=== PATIENT | female | born 1995 | race Caucasian/White ===

== ENCOUNTER 2016-08-18 08:42 | Emergency (ER) | payer BC, OTHER ==
[2016-08-18 08:49] VITALS: BP 148/98
[2016-08-18 10:19] LABS: ABSOLUTE LYMPHOCYTES (AUTO) 1.3 10^3/uL (0.5-4.7); ABSOLUTE NEUT (AUTO) 11.2 10^3/uL (1.7-8.2); BASOPHILS % (AUTO) 0.2 % (0-2); EOSINOPHILS % (AUTO) 0.3 % (0-6); HEMATOCRIT 42.2 % (36.0-47.0); HEMOGLOBIN 13.8 g/dL (12.0-15.5); HGB HCT DIFFERENCE -0.8; LYMPHOCYTES % (AUTO) 9.8 % (13-45); MEAN CORPUSCULAR HEMOGLOBIN 28.3 pg (27.0-33.4); MEAN CORPUSCULAR HGB CONC 32.6 g/dL (32.0-36.0); MEAN CORPUSCULAR VOLUME 87 fl (80-97); MONOCYTES % (AUTO) 7.1 % (3-13); RED BLOOD COUNT 4.85 10^6/uL (3.72-5.28); RED CELL DISTRIBUTION WIDTH 13.4 % (11.5-14.0); SEGMENTED NEUTROPHILS % (AUTO) 82.6 % (42-78); WHITE BLOOD COUNT 13.6 10^3/uL (4.0-10.5)
[2016-08-18 10:20] LABS: APPEARANCE,URINE SLIGHTLY-CLOUDY; BILIRUBIN,URINE NEGATIVE (NEGATIVE); GLUCOSE, URINE NEGATIVE (NEGATIVE); KETONES,URINE NEGATIVE (NEGATIVE); LEUKOCYTE ESTERASE,URINE SMALL (NEGATIVE); NITRITE,URINE NEGATIVE (NEGATIVE); PROTEIN,URINE NEGATIVE (NEGATIVE); URINE SPECIFIC GRAVITY 1.029; UROBILINOGEN,URINE NEGATIVE mg/dL (<2.0)
[2016-08-18 10:39] LABS: ALBUMIN 4.7 g/dL (3.5-5.0); ANION GAP 17 (5-19); BLOOD UREA NITROGEN 15 mg/dL (7-20); CALCIUM 10.1 mg/dL (8.4-10.2); CARBON DIOXIDE 20 mmol/L (22-30); CHLORIDE 106 mmol/L (98-107); CREATININE RESULT 0.68 mg/dL (0.52-1.25); GLUCOSE 103 mg/dL (75-110); POTASSIUM 4.8 mmol/L (3.6-5.0); SODIUM 142.6 mmol/L (137-145)
[2016-08-18 10:40] LABS: ALANINE AMINOTRANSFERASE 19 U/L (9-52); ALKALINE PHOSPHATASE 76 U/L (38-126); ASPARTATE AMINO TRANSFERASE 20 U/L (14-36); BILIRUBIN,DIRECT 0.1 mg/dL (0.0-0.4); BILIRUBIN,TOTAL 0.9 mg/dL (0.2-1.3); LIPASE 53.6 U/L (23-300); TOTAL PROTEIN 7.8 g/dL (6.3-8.2)
[2016-08-18] MEDS ORDERED: METOCLOPRAMIDE HCL INJ/PF 10 MG/2 ML SDV IV ONE (10:43)
[2016-08-18] MEDS ORDERED: DIPHENHYDRAMINE HCL 50 MG/ML VIAL IV ONE (10:43)
[2016-08-18] MEDS ORDERED: NORMAL SALINE 1000 ML 1,000 ML IV PRN (10:44)
[2016-08-18] MEDS ORDERED: FAMOTIDINE INJ/PF 20 MG/2 ML SDV IV ONE (10:44)
[2016-08-18] MEDS ORDERED: DICYCLOMINE HCL INJ 20 MG/2 ML AMPULE IM ONE (10:48)
--- NOTE | 2016-08-18 15:25 | ER Document Report ---
ED General - General Chief Complaint: Vomiting/Diarrhea Stated Complaint: VOMITING TRAVEL OUTSIDE OF THE [place] IN LAST 30 DAYS: No - HPI Patient complains to provider of: nausea vomiting diarrhea Notes: Patient's coming in for evaluation nausea vomiting diarrhea. Upon my evaluation patient is sitting in the stretcher rocking back and forth saying that she is also having abdominal pain. Double pain epigastric region. States symptoms started night prior to arrival. States night prior to arrival she did have chicken no other family members were sick. Patient denies being . Denies fevers denies chills denies recent antibiotics denies recent travel. Vomiting just examination room patient and family member are very upset after weight time stating that they have been here for greater than 2 hours with nothing being performed. Did explain to the couple that at this time was given doctor on and that we have been very busy with sick patients however there still very upset - Related Data Allergies/Adverse Reactions: No Known Allergies Allergy (Verified 08/18/16 08:47) Past Medical History - Social History Smoking Status: Never Smoker Chew tobacco use (# tins/day): No Frequency of alcohol use: None Drug Abuse: None Family History: Reviewed & Not Pertinent Patient has suicidal ideation: No Patient has homicidal ideation: No Renal/ Medical History: Denies: Hx Peritoneal Dialysis Surgical Hx: Negative - Immunizations Immunizations up to date: Yes Hx Diphtheria, Pertussis, Tetanus Vaccination: Yes Review of Systems - Review of Systems Constitutional: No symptoms reported EENT: No symptoms reported Cardiovascular: No symptoms reported Respiratory: No symptoms reported Gastrointestinal: Abdominal pain, Diarrhea, Nausea, Vomiting Genitourinary: No symptoms reported Female Genitourinary: No symptoms reported Musculoskeletal: No symptoms reported Skin: No symptoms reported Hematologic/Lymphatic: No symptoms reported Neurological/Psychological: No symptoms reported -: Yes All other systems reviewed and negative Physical Exam - Vital signs Vitals: Temp Pulse Resp BP Pulse Ox 98.3 F 85 22 H 148/98 H 100 08/18/16 08:48 08/18/16 08:48 08/18/16 08:48 08/18/16 08:48 08/18/16 08:48 Interpretation: Normal - General General appearance: Appears well, Alert - HEENT Head: Normocephalic, Atraumatic Eyes: Normal Pupils: PERRL - Respiratory Respiratory status: No respiratory distress Chest status: Nontender Breath sounds: Normal Chest palpation: Normal - Cardiovascular Rhythm: Regular Heart sounds: Normal auscultation Murmur: No - Abdominal Inspection: Normal Distension: No distension Bowel sounds: Normal Tenderness: Nontender. No: Tender, McBurney's point, Reagan's sign, Guarding, Rebound Organomegaly: No organomegaly - Back Back: Normal, Nontender - Extremities General upper extremity: Normal inspection, Nontender, Normal color, Normal ROM , Normal temperature General lower extremity: Normal inspection, Nontender, Normal color, Normal ROM , Normal temperature, Normal weight bearing. No: Best's sign - Neurological Neuro grossly intact: Yes Cognition: Normal Orientation: AAOx4 Renee Coma Scale Eye Opening: Spontaneous Renee Coma Scale Verbal: Oriented Renee Coma Scale Motor: Obeys Commands [place] Coma Scale Total: 15 Speech: Normal Motor strength normal: LUE, RUE, LLE, RLE Sensory: Normal - Psychological Associated symptoms: Normal affect, Normal mood - Skin Skin Temperature: Warm Skin Moisture: Dry Skin Color: Normal Course - Re-evaluation Re-evalutation: 08/18/16 15:23 Patient's lab work did not show any signs of critical etiology. Medications were ordered however did have a combative patient come into the ER did to come to nurses time. Upon nurse becoming available to give medications patient notified nursing staff that they would like to the with her discharge papers. During this time I was in the middle discharge and multiple other patients explained to the nurse that I would discharge him lab chance. Later informed that the patient requesting a work note again stated I would get to the paperwork after the previous discharges. Was later informed the patient left AGAINST MEDICAL ADVICE or eloped from the ER - Vital Signs Vital signs: Temp Pulse Resp BP Pulse Ox 98.3 F 85 22 H 148/98 H 100 08/18/16 08:48 08/18/16 08:48 08/18/16 08:48 08/18/16 08:48 08/18/16 08:48 - Laboratory Result Diagrams: 08/18/16 09:45 08/18/16 09:45 Laboratory results interpreted by me: 08/18/16 08/18/16 08/18/16 09:45 09:45 09:45 WBC 13.6 H Seg Neutrophils % 82.6 H Lymphocytes % 9.8 L Absolute Neutrophils 11.2 H Carbon Dioxide 20 L Ur Leukocyte Esterase SMALL H Discharge - Discharge Clinical Impression: Nausea, vomiting and diarrhea Condition: Good Disposition: HOME, SELF-CARE
== END 2016-08-18 11:35 | disposition left against medical advice (07) ==
LOC: ER 08:42
DX: R11.2 Nausea with vomiting, unspecified (principal); R19.7 Diarrhea, unspecified
CPT/HCPCS: 36415; 80053; 81001; 81025; 83690; 85025; 99283